=== PATIENT | male | born 1940 | race Caucasian/White ===

== ENCOUNTER 2019-01-31 20:04 | Outpatient (CLI) | payer MEDICARE, OTHER | END 2019-01-31 20:05 | disposition short-term general hospital (02) | LOC: EMS 20:04 | PROVIDERS: ATTEND Surgery | DX: S29.9XXA Unspecified injury of thorax, initial encounter (principal); M25.512 Pain in left shoulder; W10.9XXA Fall (on) (from) unspecified stairs and steps, initial encounter | CPT/HCPCS: A0425; A0427 ==

== ENCOUNTER 2021-09-21 18:09 | Outpatient (CLI) | payer MEDICARE, OTHER | END 2021-09-21 23:59 | disposition short-term general hospital (02) | LOC: EMS 18:09 | DX: R53.1 Weakness (principal); E87.1 Hypo-osmolality and hyponatremia; E11.9 Type 2 diabetes mellitus without complications; Z79.84 Long term (current) use of oral hypoglycemic drugs; R42 Dizziness and giddiness; K59.00 Constipation, unspecified; R11.0 Nausea; R05.9 Cough, unspecified | CPT/HCPCS: A0425; A0429 ==